=== PATIENT | female | born 1960 | race Caucasian/White ===

== ENCOUNTER 2017-01-06 06:11 | Day surgery (SDC) | payer BC, OTHER ==
[~2017-01-06 06:11] MED LIST: Lactated Ringers 1,000 ML IV SCH
[2017-01-06] MEDS ORDERED: fentaNYL 100 MCG/2 ML SDV ONE (07:13)
[2017-01-06] MEDS ORDERED: Propofol 200 MG/20 ML SDV ONE ×3 (07:13→08:10)
[2017-01-06] MEDS ORDERED: Midazolam 1 MG/ML 2 ML SDV ONE (07:13)
--- NOTE | 2017-01-06 07:29 | PCM.PREANE ---
Preanesthetic Assessment - Anesthesia/Transfusion/Family Hx Anesthesia History: Prior Anesthesia Reaction Type of Anesthesia Reaction: Excessive Nausea/Vomiting Family History of Anesthesia Reaction: No Transfusion History: No Prior Transfusion(s) - Review of Systems General: No Symptoms Pulmonary: No Symptoms Cardiovascular: No Symptoms Gastrointestinal: No symptoms Neurological: No Symptoms Other: Reports: None - Physical Assessment NPO Status Date: 01/05/17 O2 Sat by Pulse Oximetry: 94 Respiratory Rate: 16 Vital Signs: Last Vital Signs Temp 36.2 C 01/06/17 06:20 Pulse 72 01/06/17 06:20 Resp 16 01/06/17 06:20 BP 102/58 L 01/06/17 06:20 Pulse Ox 94 L 01/06/17 06:20 Height: 1.7 m Weight: 88.904 kg ASA Class: 3 Mental Status: Alert & Oriented x3 Airway Class: Mallampati = 1 Dentition: Reports: Normal Dentition ROM/Head Extension: Full Lungs: Clear to auscultation, Normal respiratory effort Cardiovascular: Regular Rate, Regular Rhythm - Allergies Allergies/Adverse Reactions: Allergies Allergy/AdvReac Type Severity Reaction Status Date / Time amoxicillin Allergy Hives Verified 01/03/17 08:05 Penicillins Allergy Hives Verified 01/03/17 08:05 - Anesthesia Plan Pre-Op Medication Ordered: Other (D5) - Acknowledgements Anesthesia Type Planned: MAC Pt an Appropriate Candidate for the Planned Anesthesia: Yes Alternatives and Risks of Anesthesia Discussed w Pt/Guardian: Yes Pt/Guardian Understands and Agrees with Anesthesia Plan: Yes PreAnesthesia Questionnaire HEENT History: Reports: Other (See Below) Other HEENT History: wears glasses Cardiovascular History: Reports: High Cholesterol Gastrointestinal History: Reports: None Genitourinary History: Reports: None [employer] ENG[employer]ER History: Reports: , Other (See Below) Other OB/BYN History: lichen sclerosus of female genitalia Musculoskeletal History: Reports: Other (See Below) Other Musculoskeletal History: occasional back pain Endocrine/Metabolic History: Reports: Diabetes, Type II, Hypothyroidism Dermatologic History: Reports: Other (See Below) Other Dermatologic History: vitiligo - Past Surgical History Head Surgeries/Procedures: Reports: None GI Surgical History: Reports: Appendectomy Female Surgical History: Reports: Section, Hysterectomy, Salpingo- Oophorectomy Other Female Surgeries/Procedures: hx vaginal sling operation for stress incontinence, complete hysterectomy and c/section x1 - SUBSTANCE USE Smoking Status *Q: Never Smoker Recreational Drug Use History: No - HOME MEDS Home Medications: Home Meds Aspirin [[place] Aspirin] 81 mg PO DAILY 01/03/17 [History] Calcium Carbonate/Vitamin D3 [Calcium 600-Vit D3 400 Tablet] 2 tab PO DAILY [History] Clobetasol [Clobetasol 0.05%] 1 applic TOP ASDIRECTED PRN 01/03/17 [History] Dulaglutide [Trulicity] 1.5 mg SUBCUT WEEKLY 01/03/17 [History] Empagliflozin [Jardiance] 20 mg PO DAILY 01/03/17 [History] Estradiol 0.5 mg PO DAILY 01/03/17 [History] Fexofenadine [Jenny] 1 tab PO DAILY PRN 01/03/17 [History] Gluc 2KCl/Chondr/[place] Hy/Hy Ac [Glucosamine & Chondroitin Cap] 2 tab PO DAILY [History] Insulin Aspart [Novolog Flexpen] 1 injection SUBCUT TID PRN 01/03/17 [History] Levothyroxine Sodium [Synthroid] 100 mcg PO DAILY 01/03/17 [History] Lisinopril 2.5 mg PO DAILY 01/03/17 [History] Multivitamin [Multivitamins] 1 tab PO DAILY 01/03/17 [History] [place]-3S/DHA/Epa/Fish Oil [[place]-3 Fish Oil 1,200 mg Sfgl] 2 tab PO DAILY [History] Tresiba 26 units SUBCUT DAILY 01/03/17 [History] atorvaSTATin Calcium [Atorvastatin Calcium] 10 mg PO BEDTIME 01/03/17 [History] metFORMIN HCl [Metformin HCl] 1,000 mg PO BID 01/03/17 [History] - CURRENT (IN HOUSE) MEDS Current Meds: Current Medications Lactated Ringer's (Ringers, Lactated) 1,000 mls @ 125 mls/hr IV ASDIRECTED [facility] Last Admin: 01/06/17 06:22 Dose: 125 mls/hr Discontinued Medications Fentanyl (Sublimaze) Confirm Administered Dose 100 mcg .ROUTE .STK-MED ONE Stop: 01/06/17 07:14 Midazolam HCl (Versed 1 Mg/Ml) Confirm Administered Dose 2 mg .ROUTE .STK-MED ONE Stop: 01/06/17 07:14 Propofol (Diprivan 20 Ml) Confirm Administered Dose 200 mg .ROUTE .STK-MED ONE Stop: 01/06/17 07:14
--- NOTE | 2017-01-06 08:34 | PCM.OPNOTE ---
- General Post-Op/Procedure Note Date of Surgery/Procedure: 01/06/17 Operative Procedure(s): Colonoscopy Pre Op Diagnosis: Hx of colon polyps. F Hx of colon Ca Post-Op Diagnosis: No evidence of neoplasia Anesthesia Technique: MAC (ASA III) Primary Surgeon: Richard Johnson Condition: Good Free Text/Narrative:: Dictation [id number] CPT code 15574
[2017-01-06] MEDS ORDERED: Lactated Ringers 1,000 ML IV SCH (08:45)
[2017-01-06 08:52] VITALS: BP 107/64
--- NOTE | 2017-01-06 09:30 | PCM.POSTAN ---
POST ANESTHESIA ASSESSMENT - MENTAL STATUS Mental Status: alert, oriented - RESPIRATORY Respiratory Status: respiratory rate WNL, airway patent, O2 saturation stable - CARDIOVASCULAR CV Status: pulse rate WNL, blood pressure stable - GASTROINTESTINAL GI Status: no symptoms - PAIN Pain Score: 0 - POST OP HYDRATION Hydration Status: adequate & stable
--- NOTE | 2017-01-06 09:30 | PCM48HPAN ---
Post Anesthesia Note - EVALUATION WITHIN 48HRS OF ANESTHETIC Vital Signs in Normal Range: Yes Patient Participated in Evaluation: Yes Respiratory Function Stable: Yes Airway Patent: Yes Cardiovascular Function Stable: Yes Hydration Status Stable: Yes Pain Control Satisfactory: Yes Nausea and Vomiting Control Satisfactory: Yes Mental Status Recovered: Yes
--- NOTE | 2017-01-06 09:38 | OR ---
SURGEON: Richard Johnson M.D. DATE OF PROCEDURE: 01/06/2017 OPERATION PERFORMED: Colonoscopy. ANESTHESIA: MAC. ASA CLASSIFICATION: III. PREOPERATIVE DIAGNOSES: Personal history of colon polyps and family history of colon cancer. POSTOPERATIVE DIAGNOSIS: No evidence of neoplasia. DESCRIPTION OF PROCEDURE: The patient was taken to the endoscopy room and positioned on the endoscopy table in the left lateral decubitus position. Time-out was called for appropriate identification of the patient and procedure. Monitored anesthesia care was provided. The colonoscope was inserted into the rectum and advanced with moderate difficulty through a very tortuous colon to reach the cecum. The cecum was identified by external pressure and internal landmarks including visualizing the appendiceal orifice. The colonoscope was then retroflexed to visualize the ascending colon from below. The colonoscope was straightened and slowly withdrawn. The cecum, ascending colon, hepatic flexure, transverse colon, splenic flexure, descending colon, sigmoid colon, and rectum showed no tumors, polyps, diverticula, or angiodysplasia. There was moderate amount of fluid and certainly a small polyp could have been missed. No large polypoid structures were identified and no obvious masses were identified. Once the colonoscope was withdrawn to the rectum, it was retroflexed to visualize the anal orifice from above. No tumors or polyps were seen and there were no acute hemorrhoidal changes. The colonoscope was then straightened, the rectum aspirated, and the colonoscope removed. The patient tolerated the procedure well and was taken to recovery room in stable condition. SMITH / HAYDEE /[id number]
== END 2017-01-06 09:08 | disposition home or self-care (01) ==
LOC: MW.SDS 06:11
PROVIDERS: ATTEND Surgery
PROC: 0DJD8ZZ Inspection of Lower Intestinal Tract, Via Natural or Artificial Opening Endoscopic (ICD-10-PCS; principal; 2017-01-06)
DX: Z12.11 Encounter for screening for malignant neoplasm of colon (principal); Z86.010 Personal history of colon polyps; E78.5 Hyperlipidemia, unspecified; E03.9 Hypothyroidism, unspecified; E11.9 Type 2 diabetes mellitus without complications; Z88.0 Allergy status to penicillin; Z79.82 Long term (current) use of aspirin; Z79.84 Long term (current) use of oral hypoglycemic drugs; Z79.4 Long term (current) use of insulin; Z79.899 Other long term (current) drug therapy; Z90.710 Acquired absence of both cervix and uterus; Z90.79 Acquired absence of other genital organ(s); Z90.49 Acquired absence of other specified parts of digestive tract; Z98.890 Other specified postprocedural states
CPT/HCPCS: 45378; 82962; J2250; J3010; J7120; J2704